=== PATIENT | male | born 1975 | race Caucasian/White ===

== ENCOUNTER 2017-06-16 17:00 | Emergency (ER) | payer OTHER ==
[~2017-06-16] VITALS: Ht 167.6 cm; Wt 90.7 kg
--- NOTE | 2017-06-16 17:10 | NUR ---
PT ARRIVED VIA RA, C/O COUGH AND CONGESTION, N/V/D, NAD NOTED, VSS, RESP EVEN AND UNLABORED, PT PUT ON MONITOR, WAITING FOR MD RIDDLE.
[2017-06-16] MEDS ORDERED: IPRATROPIUM NEB FS 0.5 MG/2.5 ML AMPUL.NEB ONE (17:18)
[2017-06-16] MEDS ORDERED: ALBUTEROL FS 2.5 MG/3 ML VIAL.NEB ONE (17:18)
[2017-06-16] MEDS ORDERED: ONDANSETRON HCL/PF 4 MG/2 ML VIAL ONE (17:20)
[2017-06-16] MEDS ORDERED: ONDANSETRON HCL/PF 4 MG/2 ML VIAL IV ONE (17:30)
[2017-06-16] MEDS ORDERED: IPRATROPIUM NEB FS 0.5 MG/2.5 ML AMPUL.NEB NEB ONE (17:30)
[2017-06-16] MEDS ORDERED: IV NS 0.9% 1,000 ML BAG IV ONE ×3 (17:30→18:30)
[2017-06-16] MEDS ORDERED: ALBUTEROL FS 2.5 MG/3 ML VIAL.NEB NEB ONE (17:30)
[2017-06-16 18:21] LABS: BASOPHILS % (AUTO) 0.1 % (0.0-2.0); EOSINOPHILS # (AUTO) 0.1 /CMM (0.0-0.7); EOSINOPHILS % (AUTO) 0.3 % (0.0-6.0); HEMATOCRIT 41 % (39-51); HEMOGLOBIN 13.7 g/dL (13.5-17.5); LYMPHOCYTES # (AUTO) 0.8 /CMM (0.8-4.8); LYMPHOCYTES % (AUTO) 4.1 % (20.0-44.0); MEAN CORPUSCULAR HEMOGLOBIN 28 PG (26.0-33.0); MEAN CORPUSCULAR HGB CONC 34 g/dl (31.0-36.0); MEAN CORPUSCULAR VOLUME 82 fL (80-96); MONOCYTES # (AUTO) 0.6 /CMM (0.1-1.30); MONOCYTES % (AUTO) 2.8 % (2.0-12.0); NEUTROPHILS # (AUTO) 18.1 /CMM (1.8-8.9); NEUTROPHILS % (AUTO) 92.7 % (43.0-81.0); PLATELET COUNT (AUTO) 291 /CMM (150-450); RDW COEFFICIENT OF VARIATION 16.9 (11.5-15.0); RED BLOOD CELL COUNT(AUTO) 4.97 MIL/uL (4.5-6.0); WHITE BLOOD COUNT (AUTO) 19.5 K/uL (4.3-11.0)
[2017-06-16] MEDS ORDERED: BUPR-96 PO (18:29)
[2017-06-16] MEDS ORDERED: FAMO20TA8 PO (18:29)
[2017-06-16] MEDS ORDERED: CITA20TA19 PO (18:29)
[2017-06-16] MEDS ORDERED: DIGO125T PO (18:29)
[2017-06-16] MEDS ORDERED: ATEN100T PO (18:29)
[2017-06-16 18:31] LABS: CALCIUM, SERUM 8.9 mg/dL (8.5-10.1); CREATININE 1.4 mg/dL (0.6-1.3); POTASSIUM 4.6 mmol/L (3.5-5.1)
[2017-06-16 19:00] LABS: INR 2.96 (0.87-1.13)
[2017-06-16] MEDS ORDERED: CEFTRIAXONE 1GM BAG (ER ONLY) 50 ML IV ONE (19:00)
[2017-06-16] MEDS ORDERED: AZITHROMYCIN 500 MG in IV D5W 250 ML IV ONE (19:00)
--- NOTE | 2017-06-16 19:38 | NUR ---
CALLED [facility] - PAGED JOSEFINA BAEZ
[2017-06-16 19:57] LABS: TROPONIN I < 0.017 ng/mL (0.00-0.056)
[2017-06-16 20:43] LABS: DIGOXIN 0.63 ng/mL (0.90-2.00)
--- NOTE | 2017-06-16 21:28 | NUR ---
PT WILL GOT TO [facility] ER TO DR. SAVANNAH HAMMOND ACLS RIG ETA 2200 - NUMBER FOR REPORT [phone]
[2017-06-16 22:00] VITALS: BP 129/70
== END 2017-06-16 22:07 | disposition short-term general hospital (02) ==
LOC: ER 17:00
DX: B34.9 Viral infection, unspecified (principal); J18.9 Pneumonia, unspecified organism; R09.02 Hypoxemia; D72.829 Elevated white blood cell count, unspecified; J45.909 Unspecified asthma, uncomplicated; Z95.0 Presence of cardiac pacemaker; Z88.8 Allergy status to other drugs, medicaments and biological substances
CPT/HCPCS: 36415; 71045; 80048; 80162; 83605; 84484; 85025; 85730; 87040 ×2; 93005; 94640; 96361; 96365; 96368; 96375; 99285; A4606; J0456; J0696; J2405; J7030 ×2; J7060; Z7610